=== PATIENT | female | born 1960 | race African-American/Black ===

== ENCOUNTER 2019-06-11 14:01 | Inpatient (IN) | payer BC, MEDICARE ==
[~2019-06-11] VITALS: Ht 160 cm; Wt 83.1 kg
[2019-06-11] MEDS ORDERED: AMLO5TAB9 PO (14:04)
[2019-06-11] MEDS ORDERED: CLON0.1T2 PO (14:04)
[2019-06-11] MEDS ORDERED: INSLAN SQ (14:04)
[2019-06-11] MEDS ORDERED: INSU100V SQ (14:04)
[2019-06-11] MEDS ORDERED: SODIUM CHLORIDE 0.9% 500 ML IV ONE (15:00)
[2019-06-11 16:04] LABS: BASOPHILS % (AUTO) 1.9 % (0.0-2.0); EOSINOPHILS % (AUTO) 3.7 % (1.0-6.0); HEMATOCRIT 31.9 % (36-46); HEMOGLOBIN 10.7 g/dL (12.0-16.0); LYMPHOCYTES % (AUTO) 20.1 % (22.0-44.0); MEAN CORPUSCULAR HEMOGLOBIN 32.4 pg (26.0-34.0); MEAN CORPUSCULAR HGB CONC 33.5 G/dL (31.0-37.0); MEAN CORPUSCULAR VOLUME 97 fL (80-100); MONOCYTES # (AUTO) 0.8 K/uL (0.1-1.0); MONOCYTES % (AUTO) 15.1 % (2.0-9.0); NEUTROPHILS % (AUTO) 59.2 % (40.0-70.0); PLATELET COUNT (AUTO) 238 K/uL (150-450); RED BLOOD CELL COUNT(AUTO) 3.29 MIL/uL (4.00-5.20); RED CELL DISTRIBUTION WIDTH 13.7 % (11.5-14.5)
[2019-06-11 16:22] LABS: CALCIUM, TOTAL 9.4 mg/dL (8.8-10.5); CREATININE 4.92 mg/dL (0.60-1.30)
[2019-06-11 16:28] LABS: ALBUMIN 3.3 g/dL (3.4-5.0); BILIRUBIN,TOTAL 0.4 mg/dL (0.1-1.0); TOTAL PROTEIN, SERUM 7.3 g/dL (6.4-8.2)
[2019-06-11 16:32] LABS: GLUCOSE,POINT OF CARE 83 MG/DL (70-110)
[2019-06-11] MEDS ORDERED: 0.9% SODIUM CHLORIDE 10 ML SYRINGE IVP PRN (17:15)
[2019-06-11] MEDS ORDERED: ASPIRIN 325 MG TABLET PO ONE (17:15)
[2019-06-11] MEDS ORDERED: ONDANSETRON HCL 4 MG/2 ML VIAL IVP PRN ×2 (17:15→17:30)
[2019-06-11] MEDS ORDERED: ACETAMINOPHEN 325 MG TABLET PO PRN ×2 (17:15→17:30)
[2019-06-11] MEDS ORDERED: ZOLPIDEM TARTRATE 5 MG TABLET PO PRN (17:30)
[2019-06-11] MEDS ORDERED: MORPHINE SULFATE 2 MG/ML SYRINGE IVP PRN (17:30)
[2019-06-11] MEDS ORDERED: HydrALAZINE HCL 20 MG/ML VIAL IVP PRN (17:30)
[2019-06-11] MEDS ORDERED: MAGNESIUM HYDROXIDE SUSPENSION 30 ML UDCUP PO PRN (17:30)
[2019-06-11] MEDS ORDERED: HYDROCODONE/ACETAMINOPHEN 5-325 MG TABLET PO PRN (17:30)
[2019-06-11] MEDS ORDERED: BISACODYL 10 MG RECTAL RECTAL SUPPOSITORY PR PRN (17:30)
[2019-06-11 18:06] LABS: GLUCOSE,POINT OF CARE 50 MG/DL (70-110)
[2019-06-11 18:17] LABS: GLUCOSE,POINT OF CARE 91 MG/DL (70-110)
[2019-06-11] MEDS ORDERED: DEXTROSE 50%-WATER 25 GM/50 ML SYRINGE IVP PRN ×2 (18:30→22:30)
[2019-06-11] MEDS ORDERED: DEXTROSE 5%-0.45% SODIUM CHL 500 ML IV ONE (18:30)
[2019-06-11 19:02] VITALS: BP 132/112
[2019-06-11 20:45] VITALS: BP 135/65
[2019-06-11] MEDS ORDERED: SODIUM CHLORIDE 0.45% 1,000 ML IV ONE (20:48)
[2019-06-11] MEDS ORDERED: INSULIN GLARGINE,HUM.REC.ANLOG 100 UNITS/ML SQ SCH (21:00)
[2019-06-11] MEDS: DOCUSATE SODIUM 100 MG CAPSULE PO SCH (23:01)
[2019-06-11] MEDS: INSULIN LISPRO 100 UNITS/ML SQ PRN (23:03)
[2019-06-12 00:17] VITALS: BP 140/64
[2019-06-12 05:06] VITALS: BP 147/71
[2019-06-12 05:53] LABS: BASOPHILS % (AUTO) 1.7 % (0.0-2.0); EOSINOPHILS % (AUTO) 6.3 % (1.0-6.0); HEMATOCRIT 30.7 % (36-46); HEMOGLOBIN 10.4 g/dL (12.0-16.0); LYMPHOCYTES # (AUTO) 1.4 K/uL (1.0-4.8); MEAN CORPUSCULAR HEMOGLOBIN 32.7 pg (26.0-34.0); MEAN CORPUSCULAR HGB CONC 33.9 G/dL (31.0-37.0); MEAN CORPUSCULAR VOLUME 97 fL (80-100); MONOCYTES # (AUTO) 0.7 K/uL (0.1-1.0); MONOCYTES % (AUTO) 14.6 % (2.0-9.0); NEUTROPHILS # (AUTO) 2.1 K/uL (1.8-7.7); NEUTROPHILS % (AUTO) 47.4 % (40.0-70.0); PLATELET COUNT (AUTO) 232 K/uL (150-450); RED BLOOD CELL COUNT(AUTO) 3.18 MIL/uL (4.00-5.20); RED CELL DISTRIBUTION WIDTH 13.2 % (11.5-14.5)
[2019-06-12 06:12] LABS: ALBUMIN 2.9 g/dL (3.4-5.0); BILIRUBIN,TOTAL 0.4 mg/dL (0.1-1.0); CALCIUM, TOTAL 9.2 mg/dL (8.8-10.5); CREATININE 6.24 mg/dL (0.60-1.30); POTASSIUM 4.7 mmol/L (3.5-5.1); TOTAL PROTEIN, SERUM 6.5 g/dL (6.4-8.2)
[2019-06-12] MEDS: INSULIN LISPRO 100 UNITS/ML SQ PRN (06:26)
[2019-06-12] MEDS ORDERED: SEVELAMER CARBONATE 800 MG TABLET PO SCH (08:00)
[2019-06-12 08:15] VITALS: BP 145/64
[2019-06-12] MEDS: HEPARIN SODIUM,PORCINE 5,000 UNITS/ML VIAL SQ SCH ×2 (08:15)
[2019-06-12] MEDS: DOCUSATE SODIUM 100 MG CAPSULE PO SCH (08:21)
[2019-06-12] MEDS ORDERED: CLOPIDOGREL BISULFATE 75 MG TABLET PO SCH (09:00)
[2019-06-12] MEDS ORDERED: PANTOPRAZOLE SODIUM 40 MG DR TABLET PO SCH (09:00)
[2019-06-12] MEDS ORDERED: NEBI5 PO (10:13)
[2019-06-12] MEDS ORDERED: OMEP20 PO (10:13)
[2019-06-12] MEDS ORDERED: EZET10TA13 PO (10:13)
[2019-06-12] MEDS ORDERED: LEVO25TA9 PO (10:13)
[2019-06-12] MEDS ORDERED: ROSU20TA23 PO (10:13)
[2019-06-12] MEDS ORDERED: TERA2CAP10 PO (10:13)
[2019-06-12] MEDS ORDERED: CINA30 PO (10:13)
[2019-06-12] MEDS ORDERED: CLOP75TA3 PO (10:13)
[2019-06-12] MEDS ORDERED: SEVE800T17 PO (10:38)
[2019-06-12 17:04] LABS: GLUCOMETER DEV NAME(LOC) 5S.2A; GLUCOSE,POINT OF CARE 212 MG/DL (70-110)
[2019-06-12 17:04] LABS: GLUCOMETER DEV NAME(LOC) 5S.2A; GLUCOSE,POINT OF CARE 359 MG/DL (70-110)
== END 2019-06-12 12:15 | disposition home or self-care (01) | DRG 638 ==
LOC: EMS 14:04 → 5S 17:52
PROVIDERS: ADMIT Internal Medicine; ATTEND Internal Medicine
DX: E11.649 Type 2 diabetes mellitus with hypoglycemia without coma (principal); I12.0 Hypertensive chronic kidney disease with stage 5 chronic kidney disease or end stage renal disease; I95.3 Hypotension of hemodialysis; N18.6 End stage renal disease; Z88.1 Allergy status to other antibiotic agents; Z88.0 Allergy status to penicillin; I25.10 Atherosclerotic heart disease of native coronary artery without angina pectoris; E11.22 Type 2 diabetes mellitus with diabetic chronic kidney disease; Z99.2 Dependence on renal dialysis; Z95.1 Presence of aortocoronary bypass graft; Z95.2 Presence of prosthetic heart valve
CPT/HCPCS: 83036; 87081; 93005; 93306; J1644; J7040